=== PATIENT | male | born 1950 | race Caucasian/White ===

== ENCOUNTER → 2018-11-17 | Outpatient (CLI) | payer OTHER ==
[~2018-11-17] MED LIST: AEC81 PO; CALC-687 PO; ROSU10TA22 PO
== END | disposition home or self-care (01) ==
LOC: RAH 14:53
PROVIDERS: ATTEND Internal Medicine
DX: Z13.6 Encounter for screening for cardiovascular disorders (principal)
CPT/HCPCS: 75571

== ENCOUNTER → 2024-10-26 | Outpatient (CLI) | payer MEDICARE ==
--- NOTE | 2024-10-29 07:42 | HMCSR ---
APPROVED REPORT EXAM: Two-dimensional and M-mode echocardiogram with Doppler and color Doppler. INDICATION ICD: E83.52 Hypercalcemia R00.1 Bradycardia 2D Dimensions RVDd3.9 cmLVEF(%)66.3 (>50%)LVED Vol(simp.)147.0 mL IVSd1.1 (0.7-1.1cm)FS(%)37 %LVES Vol(simp.)57.0 mL LVDd4.7 (3.8-5.6cm)Ao Root(2D)4.1 (2.0-3.7cm)LVEF(%, simp.)61 % PWd1.1 (0.7-1.1cm)LVOT diam2.2 (1.8-2.4cm)LA ESV INDEX (BP)47.08 mL/m2 LVDs3.0 (2.5-4.0cm)IVC diam2.1 cm Aortic Valve AoV Vmax1.3 m/Alessia Peak GR7.2 mmHgLVOT Vmax1.0 m/s AoV VTI0.3 mAo Mean GR3.6 mmHgLVOT VTI0.22 m WILEY (VMAX)2.9 cm2AVA (VTI) 2.9 cm2 Mitral Valve MV E Vmax81.0 cm/sDECEL Bgho469 ms MV A Vmax49.0 cm/sP 1/2 T58 ms E/A ratio1.7MVA (PHT)3.8 cm2 TDI E/E' Medial9.6E/E' Lateral7.1 Pulmonary Valve PV Vmax1.1 m/sPV VTI0.24 mPV Mean GR3 mmHg PV Peak GR4.8 mmHg Tricuspid Valve TR Vmax2.1 m/sRAP (EST) 8 twTtBGKI64.7 mmHg TR Peak GR17.7 mmHg Left Ventricle Left ventricular cavity size is normal. There is normal LV segmental wall motion. There is normal lef t ventricular wall thickness. LVEF is 60-65%. No left ventricle thrombus noted on this study. Stage I I, diastolic dysfunction. Right Ventricle The right ventricle is normal size. The right ventricular systolic function is normal. Atria The left atrium is moderately dilated. The right atrium is moderately dilated. Aortic Valve Aortic valve is trileaflet. Aortic valve leaflets are sclerotic but open well. Trace aortic regurgita tion. There is no aortic valvular stenosis. Mitral Valve The mitral valve is mildly thickened. Mitral annular calcification is borderline. Mitral regurgitatio n is trace. There is no mitral valve stenosis. Tricuspid Valve The tricuspid valve leaflets appear normal. There is trace tricuspid regurgitation. Pulmonic Valve The pulmonic valve leaflets are thin and pliable; valve motion is normal. There is trace pulmonic freda vular regurgitation. Great Vessels Aortic root is moderately dilated. IVC is dilated and collapses >50% with inspiration. Pericardium No pericardial effusion. Conclusion Left ventricular cavity size is normal. LVEF is 60-65%. Stage II, diastolic dysfunction. The right ventricle is normal size. The left atrium is moderately dilated. The right atrium is moderately dilated. Aortic valve is trileaflet. Aortic valve leaflets are sclerotic but open well. Trace aortic regurgitation. The mitral valve is mildly thickened. Mitral annular calcification is borderline. Mitral regurgitation is trace. There is no mitral valve stenosis. There is trace tricuspid regurgitation. There is trace pulmonic valvular regurgitation. Aortic root is moderately dilated. IVC is dilated and collapses >50% with inspiration. No pericardial effusion.
== END | disposition home or self-care (01) ==
LOC: SHCH 15:09
PROVIDERS: ATTEND Internal Medicine Cardiovascular Disease
DX: I08.0 Rheumatic disorders of both mitral and aortic valves (principal); R00.1 Bradycardia, unspecified; E83.52 Hypercalcemia
CPT/HCPCS: 93306

== ENCOUNTER → 2024-12-10 | Outpatient (CLI) | payer MEDICARE ==
[~2024-12-10] MED LIST changes: +IOHEXOL 350 MG/ML 100ML INFUS..BTL IV ONE
--- NOTE | 2024-12-10 14:23 | HMCIMG ---
CT CARDIAC ANGIO W/CONT. CCTA HISTORY: Thoracic aortic aneurysm COMPARISON: None TECHNIQUE: Multiple sequential axial images of the chest were obtained along with the CT angiogram of the chest study. Patient was given 100 cc of Omnipaque through intravenous route. FINDINGS: There is no evidence of pulmonary nodule or parenchymal disease. No pleural effusion or pericardial effusion is seen. There is no evidence of pneumothorax. There are normal size mediastinal and hilar lymph nodes. The heart is borderline enlarged. Coronary artery calcifications are seen. Degenerative changes of the thoracolumbar spine are present . Ascending thoracic aorta measures 3.5 x 3.3 cm. IMPRESSION: 1. No evidence of pulmonary nodule or effusion is seen. Please see CT angiogram report of coronary arteries.
--- NOTE | 2024-12-11 08:57 | CARDIOLOGY ---
RAD REPORT: CORNARY CT ANGIO RADIOLOGY REPORT: CORONARY CT ANGIOGRAPHY DATE: Dec 11, 2024 QUALITY: Excellent CLINICAL HISTORY AND INDICATION: [ elevated coronary artery calcium score and aortic root dilation ] TECHNIQUE: After obtaining a preliminary advertising assistant manager image, contrast imaging performed on an [id number] [id number] scanner. A dedicated, limited window, coronary imaging protocol was used, with single breath-hold, retrospective ECG gating, and automated arrhythmia rejection. 100 cc of low osmolar contrast agent: Omnipaque 350 was delivered via a 18-gauge IV catheter in the right antecubital fossa, using a power injector and followed by 60 cc of normal saline bolus as a chaser. Collimated images were reformatted at 0.5 mm intervals, and sent to an offline independent workstation for interpretation, using 3D anatomic reconstructions: Curved multiplanar reconstructions, maximum intensity projections, and multiplanar imaging. No metoprolol was administered prior to scanning due to low baseline heart rate. 0.8 mg SL nitroglycerin was given. CORONARY ARTERY DESCRIPTIONS: The coronary arteries arise in normal position. Left main coronary artery: Normal caliber vessel that bifurcates into the LAD and LCx. No stenosis. Left anterior descending coronary artery: Normal caliber vessel and gives rise to diagonal and septal branches. There is calcified plaque in the mid LAD with 20-30% stenosis. There is calcified plaque in the proximal D1 with 30-40% stenosis. Left circumflex coronary artery: Normal caliber, nondominant and gives rise to a large OM branch. There is calcified plaque in the proximal LCx with <20% stenosis. Right coronary artery: Large, dominant vessel giving rise to the PL and PDA branches. There is calcified plaque in the mid RCA with <20% stenosis. CAD-RADs: 2, mild non-obstructive CAD. Thoracic Aorta: Aortic root measures 3.9 cm. Radha Houston MD Cardiovascular Disease [facility] RADHA HOUSTON MD Dec 11, 2024 08:57
== END | disposition home or self-care (01) ==
LOC: RAH 10:30
PROVIDERS: ATTEND Internal Medicine Cardiovascular Disease
DX: I25.10 Atherosclerotic heart disease of native coronary artery without angina pectoris (principal); I71.20 Thoracic aortic aneurysm, without rupture, unspecified; M47.815 Spondylosis without myelopathy or radiculopathy, thoracolumbar region
CPT/HCPCS: 75574; Q9967